=== PATIENT | female | born 1970 | race Caucasian/White ===

== ENCOUNTER 2017-10-04 09:09 | Inpatient (IN) | payer BC ==
[2017-10-04 09:43] LABS: ADD MAN DIFF? NO
[2017-10-04 09:46] LABS: BASO % 0 % (0-3); EOS % 0 % (0-3); HEMATOCRIT 35.6 % (36.0-47.0); HEMOGLOBIN 11.7 g/dL (12.0-15.5); LYMPH # 0.9 x10^3/uL (1.0-4.8); LYMPH % 11 % (24-48); MEAN CORPUSCULAR HEMOGLOBIN 29 pg (25-35); MEAN CORPUSCULAR HGB CONC 33 g/dL (31-37); MEAN CORPUSCULAR VOLUME 89 fL (79-100); MONO # 0.7 x10^3/uL (0.0-1.1); MONO % 8 % (0-9); NEUT # 6.7 x10^3uL (1.8-7.7); NEUT % 80 % (31-73); PLATELET COUNT 185 x10^3/uL (140-400); RED BLOOD COUNT 4.01 x10^6/uL (3.50-5.40); RED CELL DISTRIBUTION WIDTH 13.9 % (11.5-14.5); WHITE BLOOD COUNT 8.3 x10^3/uL (4.0-11.0)
[2017-10-04 10:03] LABS: ANION GAP 13 (6-14); BLOOD UREA NITROGEN 27 mg/dL (7-20); BUN/CREATININE RATIO 19 (6-20); CALCIUM 9.1 mg/dL (8.5-10.1); CARBON DIOXIDE 24 mmol/L (21-32); CHLORIDE 100 mmol/L (98-107); CREATININE 1.4 mg/dL (0.6-1.0); GFR 40.3; GLUCOSE 107 mg/dL (70-99); POTASSIUM 3.7 mmol/L (3.5-5.1); SODIUM 137 mmol/L (136-145)
[2017-10-04 10:15] LABS: ALBUMIN 3.8 g/dL (3.4-5.0); ALBUMIN/GLOBULIN RATIO 0.9 (1.0-1.7); ALK PHOS 84 U/L (46-116); ALT (SGPT) 56 U/L (14-59); AST (SGOT) 44 U/L (15-37); TOTAL BILIRUBIN 0.5 mg/dL (0.2-1.0); TOTAL PROTEIN 8.1 g/dL (6.4-8.2)
[2017-10-04] MEDS ORDERED: VANCOMYCIN 1.5 GM in IV NORMAL SALINE 500ML BAG 500 ML IV (11:00)
[2017-10-04] MEDS: IV NORMAL SALINE 1000ML BAG 1,000 ML IV ×2 (11:18→16:17)
[2017-10-04] MEDS: CLINDAMYCIN 600MG PREMIX 50 ML IV ×2 (11:18→21:22)
[2017-10-04] MEDS ORDERED: MORPHINE SULFATE 4 MG/ML DISP.SYRIN. IV (11:30)
[2017-10-04] MEDS ORDERED: ONDANSETRON PF 4 MG/2 ML VIAL. IV ×2 (11:30→15:00)
[2017-10-04] MEDS: VANCOMYCIN 2 GM in IV DEXTROSE 5 %-0.2 % NACL 500 ML IV (11:43)
[2017-10-04 11:51] LABS: LACTIC ACID 1.2 mmol/L (0.4-2.0)
[2017-10-04] MEDS: IV NORMAL SALINE 500ML BAG 500 ML IV (15:04)
[2017-10-04] MEDS: ACETAMINOPHEN 325 MG TABLET. PO (15:25)
[2017-10-04 15:52] LABS: LACTIC ACID 1.3 mmol/L (0.4-2.0)
[2017-10-04] MEDS ORDERED: ALBUTEROL SULFATE 2.5 MG/3 ML NEBU. NEB (16:00)
[2017-10-04] MEDS: oxyCODONE/APAP 5/325 1 TAB TABLET PO ×2 (16:18→17:26)
[2017-10-04] MEDS: OMEGA-3 FATTY ACIDS/FISH OIL 1,000 MG CAPSULE. PO (17:14)
[2017-10-04] MEDS: VENLAFAXINE XR 37.5 MG CAP.ER.24H. PO (17:14)
[2017-10-04] MEDS: FLUCONAZOLE 100 MG TABLET. PO (18:23)
[2017-10-04] MEDS: ceFAZolin SODIUM IV Push 1 GM VIAL. IVP (18:24)
[2017-10-04] MEDS: sulfaSALAzine 500 MG TABLET PO (21:22)
[2017-10-04] MEDS: OXYBUTYNIN CHLORIDE 5 MG TABLET PO (21:22)
[2017-10-04] MEDS: HYDROXYCHLOROQUINE 200 MG TABLET PO (21:22)
[2017-10-04] MEDS ORDERED: ceFAZolin SODIUM 1 GM in IV DEXTROSE 5% 50 ML IV (22:00)
[2017-10-05] MEDS: HYDROcodone/APAP 7.5/325MG 1 TAB TABLET PO ×3 (00:19→21:10)
[2017-10-05] MEDS: IV NORMAL SALINE 1000ML BAG 1,000 ML IV ×3 (01:00→21:00)
[2017-10-05 01:01] LABS: INFLUENZA B PATIENT POSITIVE (NEGATIVE); OBC FLU VALID
[2017-10-05 01:03] LABS: INFLUENZA A PATIENT POSITIVE (NEGATIVE)
[2017-10-05] MEDS: ceFAZolin SODIUM IV Push 1 GM VIAL. IVP ×4 (04:06→22:30)
[2017-10-05 05:07] LABS: ADD MAN DIFF? NO
[2017-10-05 05:23] LABS: BASO % 0 % (0-3); EOS % 1 % (0-3); HEMATOCRIT 29.3 % (36.0-47.0); HEMOGLOBIN 9.8 g/dL (12.0-15.5); LYMPH # 1.3 x10^3/uL (1.0-4.8); LYMPH % 23 % (24-48); MEAN CORPUSCULAR HEMOGLOBIN 30 pg (25-35); MEAN CORPUSCULAR HGB CONC 34 g/dL (31-37); MEAN CORPUSCULAR VOLUME 89 fL (79-100); MONO # 0.7 x10^3/uL (0.0-1.1); MONO % 14 % (0-9); NEUT # 3.4 x10^3uL (1.8-7.7); NEUT % 62 % (31-73); PLATELET COUNT 127 x10^3/uL (140-400); RED BLOOD COUNT 3.31 x10^6/uL (3.50-5.40); RED CELL DISTRIBUTION WIDTH 13.8 % (11.5-14.5); WHITE BLOOD COUNT 5.5 x10^3/uL (4.0-11.0)
[2017-10-05 05:45] LABS: ALBUMIN 2.9 g/dL (3.4-5.0); ALBUMIN/GLOBULIN RATIO 0.8 (1.0-1.7); ALK PHOS 81 U/L (46-116); ALT (SGPT) 46 U/L (14-59); ANION GAP 8 (6-14); AST (SGOT) 32 U/L (15-37); BLOOD UREA NITROGEN 16 mg/dL (7-20); BUN/CREATININE RATIO 15 (6-20); CALCIUM 8.5 mg/dL (8.5-10.1); CARBON DIOXIDE 25 mmol/L (21-32); CHLORIDE 105 mmol/L (98-107); CREATININE 1.1 mg/dL (0.6-1.0); GFR 53.2; GLUCOSE 97 mg/dL (70-99); POTASSIUM 3.7 mmol/L (3.5-5.1); SODIUM 138 mmol/L (136-145); TOTAL BILIRUBIN 0.3 mg/dL (0.2-1.0); TOTAL PROTEIN 6.6 g/dL (6.4-8.2)
[2017-10-05] MEDS: CLINDAMYCIN 600MG PREMIX 50 ML IV ×3 (06:00→22:30)
[2017-10-05] MEDS ORDERED: LEVOTHYROXINE 125 MCG TABLET PO (07:00)
[2017-10-05] MEDS: LISINOPRIL 10 MG TABLET PO (08:35)
[2017-10-05] MEDS: hydroCHLOROthiazide 12.5 MG CAPSULE PO (08:36)
[2017-10-05] MEDS: OMEGA-3 FATTY ACIDS/FISH OIL 1,000 MG CAPSULE. PO (08:40)
[2017-10-05] MEDS: LEVOTHYROXINE 25 MCG TABLET. PO (08:40)
[2017-10-05] MEDS: FLUCONAZOLE 100 MG TABLET. PO (08:41)
[2017-10-05] MEDS: HYDROXYCHLOROQUINE 200 MG TABLET PO ×2 (08:41→21:09)
[2017-10-05] MEDS: OXYBUTYNIN CHLORIDE 5 MG TABLET PO ×2 (08:41→21:10)
[2017-10-05] MEDS: sulfaSALAzine 500 MG TABLET PO ×2 (08:41→21:09)
[2017-10-05] MEDS: CHOLECALCIFEROL (VITAMIN D3) 1,000 UNIT TABLET PO (08:42)
[2017-10-05] MEDS: VENLAFAXINE XR 37.5 MG CAP.ER.24H. PO (08:42)
[2017-10-05] MEDS: LEVOTHYROXINE 150 MCG TABLET PO (08:42)
[2017-10-05] MEDS: LACTOBACILLUS RHAMNOSUS GG 1 CAPSULE. PO ×2 (10:31→21:09)
[2017-10-05] MEDS: OSELTAMIVIR 75 MG CAPSULE PO ×2 (10:32→21:09)
[2017-10-05] MEDS: oxyCODONE/APAP 5/325 1 TAB TABLET PO (10:33)
[2017-10-06] MEDS: IV NORMAL SALINE 1000ML BAG 1,000 ML IV ×2 (00:41→20:53)
[2017-10-06] MEDS: HYDROcodone/APAP 7.5/325MG 1 TAB TABLET PO (03:33)
[2017-10-06] MEDS: CLINDAMYCIN 600MG PREMIX 50 ML IV (06:04)
[2017-10-06] MEDS: ceFAZolin SODIUM IV Push 1 GM VIAL. IVP ×3 (06:04→22:25)
[2017-10-06] MEDS: LEVOTHYROXINE 25 MCG TABLET. PO (06:05)
[2017-10-06] MEDS: LEVOTHYROXINE 150 MCG TABLET PO (06:05)
[2017-10-06] MEDS: LISINOPRIL 10 MG TABLET PO (09:00)
[2017-10-06] MEDS: LACTOBACILLUS RHAMNOSUS GG 1 CAPSULE. PO ×2 (10:23→20:39)
[2017-10-06] MEDS: FLUCONAZOLE 100 MG TABLET. PO (10:23)
[2017-10-06] MEDS: VENLAFAXINE XR 37.5 MG CAP.ER.24H. PO (10:23)
[2017-10-06] MEDS: sulfaSALAzine 500 MG TABLET PO ×2 (10:23→20:52)
[2017-10-06] MEDS: OXYBUTYNIN CHLORIDE 5 MG TABLET PO ×2 (10:23→20:38)
[2017-10-06] MEDS: hydroCHLOROthiazide 12.5 MG CAPSULE PO (10:24)
[2017-10-06] MEDS: HYDROXYCHLOROQUINE 200 MG TABLET PO ×2 (10:24→20:38)
[2017-10-06] MEDS: OMEGA-3 FATTY ACIDS/FISH OIL 1,000 MG CAPSULE. PO (10:24)
[2017-10-06] MEDS: OSELTAMIVIR 75 MG CAPSULE PO ×2 (10:25→20:38)
[2017-10-06] MEDS: CHOLECALCIFEROL (VITAMIN D3) 1,000 UNIT TABLET PO (10:25)
[2017-10-06] MEDS: oxyCODONE/APAP 5/325 1 TAB TABLET PO ×2 (14:02→20:52)
[2017-10-07] MEDS: LEVOTHYROXINE 150 MCG TABLET PO (06:00)
[2017-10-07] MEDS: LEVOTHYROXINE 25 MCG TABLET. PO (06:00)
[2017-10-07] MEDS: ceFAZolin SODIUM IV Push 1 GM VIAL. IVP ×2 (06:00→14:18)
[2017-10-07] MEDS: IV NORMAL SALINE 1000ML BAG 1,000 ML IV ×2 (06:01→13:10)
[2017-10-07] MEDS: oxyCODONE/APAP 5/325 1 TAB TABLET PO ×2 (06:01→13:44)
[2017-10-07] MEDS: OSELTAMIVIR 75 MG CAPSULE PO (10:29)
[2017-10-07] MEDS: LACTOBACILLUS RHAMNOSUS GG 1 CAPSULE. PO (10:29)
[2017-10-07] MEDS: OMEGA-3 FATTY ACIDS/FISH OIL 1,000 MG CAPSULE. PO (10:29)
[2017-10-07] MEDS: sulfaSALAzine 500 MG TABLET PO (10:29)
[2017-10-07] MEDS: HYDROXYCHLOROQUINE 200 MG TABLET PO (10:29)
[2017-10-07] MEDS: OXYBUTYNIN CHLORIDE 5 MG TABLET PO (10:30)
[2017-10-07] MEDS: hydroCHLOROthiazide 12.5 MG CAPSULE PO (10:30)
[2017-10-07] MEDS: FLUCONAZOLE 100 MG TABLET. PO (10:30)
[2017-10-07] MEDS: LISINOPRIL 10 MG TABLET PO (10:30)
[2017-10-07] MEDS: CHOLECALCIFEROL (VITAMIN D3) 1,000 UNIT TABLET PO (10:30)
[2017-10-07] MEDS: VENLAFAXINE XR 37.5 MG CAP.ER.24H. PO (10:30)
[2017-10-07] MEDS ORDERED: INFLUENZA VAX SCREEN BY RX. MC (10:30)
[2017-10-07] MEDS: FLU VACC QS2017-18 (36MOS+)/PF 0.5 ML SYRINGE. VAX IM (12:17)
== END 2017-10-07 15:45 | disposition home or self-care (01) | DRG 872 ==
LOC: ER 09:09 → 5 SOUTH 10:49
DX: A41.9 Sepsis, unspecified organism (principal); N17.9 Acute kidney failure, unspecified; L03.115 Cellulitis of right lower limb; L03.116 Cellulitis of left lower limb; Z68.43 Body mass index [BMI] 50.0-59.9, adult; E03.9 Hypothyroidism, unspecified; E66.9 Obesity, unspecified; F32.9 Major depressive disorder, single episode, unspecified; I10 Essential (primary) hypertension; J10.1 Influenza due to other identified influenza virus with other respiratory manifestations; L73.9 Follicular disorder, unspecified; M06.9 Rheumatoid arthritis, unspecified; M19.90 Unspecified osteoarthritis, unspecified site; Z79.899 Other long term (current) drug therapy; Z90.49 Acquired absence of other specified parts of digestive tract
CPT/HCPCS: 36415; 80053; 83605; 85025; 87040; 87804; 87804-59; 90686; 93971; 94760; 96365; 96375; 99285; 99285-25; J0690; J3370; J3490; J7030; J7040